=== PATIENT | male | born 2000 | race Caucasian/White ===

== ENCOUNTER 2018-01-10 06:47 | Emergency (ER) | payer OTHER ==
[~2018-01-10] VITALS: Ht 154.9 cm; Wt 68.0 kg
[2018-01-10 06:49] VITALS: BP 133/77
[2018-01-10] MEDS ORDERED: KETOROLAC 60 MG/2 ML VIAL IM ONE ×2 (07:15→07:35)
[2018-01-10] MEDS ORDERED: IBUPROFEN 400 MG TAB PO ONE (07:45)
[2018-01-10] MEDS ORDERED: IBUPROFEN 400 MG TAB ONE (07:51)
[2018-01-10 08:01] VITALS: BP 133/77
== END 2018-01-10 08:02 | disposition home or self-care (01) ==
LOC: MED 06:47
DX: H66.91 Otitis media, unspecified, right ear (principal); R05 Cough; R09.89 Other specified symptoms and signs involving the circulatory and respiratory systems
CPT/HCPCS: 99283; J1885